=== PATIENT | female | born 1935 | race Caucasian/White ===

== ENCOUNTER 2021-01-17 10:41 | Outpatient (CLI) | payer MEDICARE, SELFPAY ==
--- NOTE | ~2021-01-17 | DEXA_ITS ---
Bone Density Report Name: Viviane Nova Age: 85 Sex: Female Ethnicity: White Date of : 1935 Indication: postmenopausal; screening for osteoporosis; height loss; Referring Provider: Julian, [place] Study: Bone densitometry was performed. Exam Date: January 17, 2021 Accession number: [id number] Bone Density: Region BMD T-score Z-score Classification AP Spine(L2, L3, L4) 1.218 1.3 4.2 Normal Femoral Neck (Left) 0.781 -0.6 1.9 Normal Total Hip (Left) 0.811 -1.1 1.2 Osteopenia Femoral Neck (Right) 0.714 -1.2 1.2 Osteopenia Total Hip (Right) 0.755 -1.5 0.7 Osteopenia Femoral Neck Mean 0.748 -0.9 1.6 Normal Total Hip Mean 0.783 -1.3 1.0 Osteopenia World Health Organization criteria for BMD impression classify patients as: Normal (T-score at or above -1.0), Osteopenia (T-score between -1.0 and -2.5), or Osteoporosis (T-score at or below -2.5). 10-year Fracture Risk(1): Major Osteoporotic Fracture 12% Hip Fracture 2.9% Reported Risk Factors: [place] (), Neck BMD=0.714, BMI=27.6 (1) FRAX(R) Version 3.08. Fracture probability calculated for an untreated patient. Fracture probability may be lower if the patient has received treatment. Clinical Information Provided by Patient: Has used the following medications: Actonel (i.e. risedronate), Evista (i.e. raloxifene), Vitamin D Patient maximum height was 67 Menopause Age: 52 No regular weight bearing exercise Onset of menses at age 15 Number of children 3 Impression: The patient has low bone mass, based on the Right Total Hip T-score. Discussion: BONE DENSITY IS LOW AT ONE OR MORE SKELETAL SITES. This patient's lowest T-score is low at one or more skeletal sites. It meets the World Health Organization's (WHO) criteria for ?low bone mass? (T-score between -1.0 and -2.5). The patient's 10-year risk of fracture as calculated by FRAX is less than the threshold where pharmacological therapy is recommended by the National Osteoporosis Foundation (NOF). However, all treatment decisions require clinical judgment and consideration of individual patient factors, including patient preferences, comorbidities, previous drug use, risk factors not captured in the FRAX model (e.g., frailty, falls, vitamin D deficiency, increased bone turnover, interval significant decline in bone density) and possible under or overestimation of fracture risk by FRAX. The patient should follow a healthful lifestyle (good nutrition with adequate calcium and vitamin D, and appropriate weight-bearing exercise). Follow-Up: Consider repeating this study in 2 to 3 years to reassess this patient's status, or sooner if there is some new clinical indication. Reported by: Dr. Darren De La Rosa on 01/17/2021 11:14:00 AM.
== END 2021-01-17 10:42 | disposition home or self-care (01) ==
LOC: CHSIMG 10:47
PROVIDERS: PCP Nurse Practitioner; Visit Provider Nurse Practitioner
DX: M85.80 Other specified disorders of bone density and structure, unspecified site (principal); Z78.0 Asymptomatic menopausal state
CPT/HCPCS: 77080

== ENCOUNTER 2025-02-15 08:33 | Outpatient (CLI) | payer MEDICARE, SELFPAY ==
--- OUTSIDE RECORDS SUMMARY | 2025-02-15 08:53 | XMS_ITS | Clinical Summary ---
Author Organization [facility] Address [facility] [place] [address] Care Team Providers Care Logistician Name Role Phone Aleja Tang MD Primary Care Provider [phone] Allergies Active Allergy Reactions Criticality Noted Date Comments Amlodipine Hives 08/01/2020 Sulfamethoxazole-Trimethoprim Unknown 2019 Medications simvastatin 20 MG tablet Take 20 mg by mouth nightly at bedtime. Active atenolol 25 MG tablet Take 25 mg by mouth daily. Active valsartan 320 MG tablet Take 320 mg by mouth daily. Active levothyroxine 50 MCG tablet Take 50 mcg by mouth every morning. Active Encounters Date Type Department Care Team Description 01/20/2025 10:50 AM TENT WORKER - 01/20/2025 11:59 PM [facility] Hospital Encounter [facility] [address] [place] [address] Kristyn Leone MD Discharge Disposition: Home or Self Care (Routine Discharge) 01/20/2025 Orders Only [facility] [place] [address] Kristyn Leone MD 01/20/2025 Travel 11/26/2024 1:27 PM TENT WORKER - 11/26/2024 11:59 PM [facility] Hospital Encounter [facility] [address] [place] [address] Aleja Tang MD Discharge Disposition: Home or Self Care (Routine Discharge) 11/26/2024 Travel from Last 3 Months Immunizations Name Administration Dates Next Due Influenza Adult (Generic) 09/10/2021 Pneumococcal (Pneumovax 23) 09/08/2009 Family History Medical History Relation Comments Heart Disease Father Heart Disease Mother Breast Cancer Sister Relation Status Comments Father Mother Sister Social History Tobacco Use Types Packs/Day Years Used Date Smoking Tobacco: Never Smokeless Tobacco: Never Alcohol Use Standard Drinks/Week Comments Yes 0 (1 standard drink = 0.6 oz pur e alcohol) rare occasion Comments No Sex and Gender Information Value Date Recorded Sex Assigned at Female 01/20/2025 10:47 AM TENT WORKER Legal Sex Female 11:01 PM CDT Gender Identity Not on file Sexual Orientation Not on file Last Filed Vital Signs Vital Sign Reading Time Taken Comments Blood Pressure 137/56 08/08/2020 8:50 AM CDT Pulse 58 08/08/2020 8:50 AM CDT Temperature 35.9 C (96.7 F) 08/08/2020 8:50 AM CDT Respiratory Rate 18 08/08/2020 8:50 AM CDT Oxygen Saturation 97% 08/08/2020 8:50 AM CDT Inhaled Oxygen Concentration - - Weight 79.8 kg (176 lb) 08/01/2020 2:43 PM CDT Height 167.6 cm (5' 6 ) 08/01/2020 2:43 PM CDT Body Mass Index 28.41 08/01/2020 2:43 PM CDT Plan of Treatment Upcoming Encounters Date Type Department Care Team (Late st Contact Info) Description 02/28/2025 1:30 PM CDT Appointment [facility] [address] [facility] [place] [place] [address] Aleja Tang MD [address] [place] [address] Health Maintenance Due Date Last Done Comments DTaP, Tdap and Td Vaccines ( 1 - Tdap) 1956 Zoster Vaccines (1 of 2) 1987 Annual Medicare Wellness Visit 2002 Pneumococcal Vaccine: 65+ Years (2 of 2 - PCV) 09/08/2010 09/08/2009 RSV Immunization or 60+ Years (1 - 1-dose 75+ series) 2012 COVID-19 Vaccine ( - 2023-2 5 season) 2024 09/10/2021, 01/12/2021, 12/15/2020 Meningococcal B Vaccine Aged Out No l onger eligible based on patient's age to complete this topic Meningococcal Vaccine Aged Out No ramon ketan eligible based on patient's age to complete this topic RSV Immunizations Under 20 Months Aged Out No longer eligible b ased on patient's age to complete this topic Procedures Procedure Name Priority Date/Time Associated Diagnosis Comments ALBUMIN URINE RANDOM W/CREATININE Routine 01/20/2025 11:25 AM TENT WORKER Chronic kidney disease, stage 3 unspecified (CMS/HCC) CBC W/DIFF AUTOMATED Routine 01/20/2025 11:22 AM TENT WORKER Chronic kidney disease, stage 3 unspecified (CMS/HCC) RENAL FUNCTION PANEL Routine 01/20/2025 11:22 AM TENT WORKER Chronic kidney disease, stage 3 unspecified (CMS/HCC) MRI LUMB SPINE WO CON Routine 11/26/2024 2:25 PM TENT WORKER Facet joint disease of lumbosacral region from Last 3 Months Results * ALBUMIN CREATININE URINE RANDOM (01/20/2025 11:25 AM TENT WORKER) ALBUMIN (U) 1.2 MG/DL 01/20/2025 11:52 AM TENT WORKER [facility] Comment:REFERENCE RANGE NOT ESTABLISHED CREATININE RANDOM (U) 88.7 MG/DL 01/20/2025 11:52 AM TENT WORKER [facility] Comment:REFERENCE RANGE NOT ESTABLISHED ALBUMIN/CREAT RATIO 13.5 <30 MG/G 01/20/2025 11:52 AM TENT WORKER [facility] Comment: NORMAL TO MILDLY INCREASED ALBUMINURIA: <30 MG/G MODERATELY INCREASED ALBUMINURIA: 30 TO 300 MG/G SEVERELY INCREASED ALBUMINURIA: >300 MG/G PER KDIGO URINE SPECIMEN / Unknown 01/20/2025 11:25 AM TENT WORKER us Kristyn Leone MD URINE ORDERABLES Final Res ult [facility] [address] [place] [address], * (ABNORMAL) RENAL FUNCTION PANEL (01/20/2025 11:22 AM TENT WORKER) SODIUM S/P/B 138 136 - 145 MMOL/L 01/20/2025 11:46 AM [facility] POTASSIUM S/P/B 4.3 3.5 - 5.1 MMOL/L 01/20/2025 11:46 AM [facility] CHLORIDE S/P/B 103 98 - 107 MMOL/L 01/20/2025 11:46 AM [facility] CO2 29.0 21.0 - 32.0 MMOL/L 01/20/2025 11:46 AM [facility] GLUCOSE 93 70 - 99 MG/DL 01/20/2025 11:46 AM [facility] Comment: FASTING GLUCOSE 100 TO 125 MG/DL IS CONSISTENT WITH IMPAIRED FASTING GLUCOSE. FASTING GLUCOSE >125 MG/DL IS CONSISTENT WITH DIABETES. RANDOM GLUCOSE >200 MG/DL WITH HYPERGLYCEMIC SYMPTOMS IS CONSISTENT WITH DIABETES. PER ADA GUIDELINES BUN 31(H) 6 - 24 MG/DL 01/20/2025 11:46 AM [facility] CREATININE S/P/B 1.26(H) 0.55 - 1.02 MG/DL 01/20/2025 11:46 AM [facility] CALCIUM S/P/B 8.9 8.4 - 10.5 MG/DL 01/20/2025 11:46 AM [facility] ALBUMIN S/P/B 3.3(L) 3.4 - 5.0 G/DL 01/20/2025 11:46 AM [facility] PHOSPHORUS 3.6 2.6 - 4.7 MG/DL 01/20/2025 11:46 AM [facility] ANION GAP 6.0 5.0 - 15.0 MMOL/L 01/20/2025 11:46 AM [facility] OSMOLALITY (CALC) 292 MOSM/KG 025 11:46 AM [facility] Comment:REFERENCE RANGE NOT ESTABLISHED GFR ESTIMATE 41(L) >89 ML/MIN/1. 73 M2 01/20/2025 11:46 AM TENT WORKER [facility] GFR NOTES GFR REFERENCE S: 01/20/2025 11:46 AM TENT WORKER [facility] Comment: THE ESTIMATED GFR IS CALCULATED USING THE 2020 CKD-EPI EQUATION. THE FOLLOWING CATEGORIES FOR GRADING RENAL FUNCTION ARE RECOMMENDED BY THE INTERNATIONAL SOCIETY OF NEPHROLOGY (KDIGO 2012 CLINICAL PRACTICE GUIDELINE). G1,NORMAL OR HIGH: >89 ml/min/1.73 m2 G2,MILDLY DECREASED: 60-89 ml/min/1.73 m2 G3A,MILDLY TO MODERATELY DECREASED: 45-59 ml/min/1.73 m2 G3B,MODERATELY TO SEVERELY DECREASED: 30-44 ml/min/1.73 m2 G4,SEVERELY DECREASED: 15-29 ml/min/1.73 m2 G5,KIDNEY FAILURE: <15 ml/min/1.73 m2 01/20/2025 11:2 2 AM TENT WORKER Kristyn Leone MD LABORATORY Final Resu lt [facility] [address] [place] [address], * (ABNORMAL) CBC W/DIFF AUTOMATED (01/20/2025 11:22 AM TENT WORKER) WBC 9.01 4.00 - 10.80 x10'3/uL 01/20/2025 11:30 AM TENT WORKER [facility] RBC 4.33 4.10 - 5.40 x10'6/uL 01/20/2025 11:30 AM [facility] HGB 13.2 12.0 - 16.0 G/DL 01/20/2025 11:30 AM [facility] HCT 39.5 36.0 - 47.0 % 01/20/2025 11:30 AM TENT WORKER [facility] MCV 91.2 78.0 - 100.0 FL 01/20/2025 11:30 AM [facility] MCH 30.5 27.0 - 31.0 PG 01/20/2025 11:30 AM [facility] MCHC 33.4 33.0 - 36.0 G/DL 01/20/2025 11:30 AM [facility] RDW 12.4 11.5 - 14.5 % 01/20/2025 11:30 AM [facility] PLT 303 150 - 350 x10'3/uL 01/20/2025 11:30 AM [facility] MPV 9.8 7.4 - 10.4 FL 01/20/2025 11:30 AM [facility] CBC COMMENT NORMAL REFERENCE RANGE NOT ESTABLISHED FOR THE PROPORTIONAL LEUKOCYTE DIFFERENTIAL. 01/20/2025 11:30 AM [facility] NEUTROPHILS % 63.2 % 01/20/2025 11:30 AM [facility] LYMPHOCYTES % 21.0 % 01/20/2025 11:30 AM [facility] MONOCYTES % 10.0 % 01/20/2025 11:30 AM [facility] EOSINOPHILS % 4.7 % 01/20/2025 11:30 AM [facility] BASOPHILS % 0.8 % 01/20/2025 11:30 AM [facility] IMMATURE GRANS % 0.3 % 01/21/20 11:30 AM [facility] NRBC % 0.0 % 01/20/2025 11:30 AM [facility] ABS. NEUTROPHILS 5.70 1.60 - 8.30 x10'3/uL 01/20/2025 11:30 AM [facility] ABS. LYMPHOCYTES 1.89 0.80 - 4.70 x10'3/uL 01/20/2025 11:30 AM [facility] ABS. MONOCYTES 0.90 0.00 - 1.50 x10'3/uL 01/20/2025 11:30 AM [facility] ABS. EOSINOPHILS 0.42(H) 0.00 - 0.40 x10'3/uL 01/20/2025 11:30 AM [facility] ABS. BASOPHILS 0.07 0.00 - 0.20 x10'3/uL 01/20/2025 11:30 AM TENT WORKER [facility] ABS. IMMATURE GRANULOCYTES 0.03 0.00 - 0.03 x10'3/uL 01/20/2025 11:30 AM TENT WORKER [facility] ABS. NUCLEATED RBC'S 0.00 0.00 - 0.01 x10'3/uL 01/20/2025 11:30 AM TENT WORKER [facility] 01/20/2025 11:2 2 AM TENT WORKER Krsityn Leone MD LABORATORY Final Resu lt [facility] [address] [employer] [place] [address], [place] [phone] * MRI LUMB SPINE WO CON (11/26/2024 2:25 PM TENT WORKER) Anatomical Region Laterality Modality Spine Magnetic Resonan ce 11/26/2024 3:25 PM TENT WORKER Impressions 11/26/2024 3:35 PM TENT WORKER IMPRESSION: 1. At L5/S1 level there is disc space narrowing with 5 mm anterolisthesis and hypertrophic facet arthropathy causing moderate central canal stenosis and severe bilateral foraminal stenosis, increased compared to the prior MRI of 2018. 2. Severe neuroforaminal stenosis on the right at L2/L3 due to disc space narrowing, 3 mm retrolisthesis and a right foraminal disc/osteophyte complex, not significantly changed. 3. Mild central canal stenosis and mild bilateral foraminal stenosis at L4/L5, unchanged. 4. 22 degrees of lumbar levoscoliosis. No acute osseous abnormality. Referred By: ALEJA TANG Interpreted By: Shaka Jhaveri MD, 11/26/2024 3:25 PM Narrative 11/26/2024 3:35 PM TENT WORKER [facility] [address] [facility] [place] [address] EXAMINATION:MRI lumbar spine without contrast 11/26/24 INDICATION:Left leg pain, facet joint disease TECHNIQUE: Multiplanar multisequence or imaging of the lumbar spine was performed without intravenous contrast. COMPARISON: Lumbar spine MRI 05/01/18 FINDINGS: Last fully formed disc space is presumed represent L5/S1. There is 22 degrees of lumbar levoscoliosis with preservation of vertebral body heights and disc spaces. Bone marrow signal is within normal limits with no acute fracture or dislocation. The conus terminates at the L1/L2 level and is unremarkable contour and signal. No paraspinal mass or fluid collection the visualized abdominal aorta is unremarkable in contour. The upper sacroiliac joint spaces are unremarkable. Mild prominence of the renal pelvis C6 and proximal ureters is unchanged. T10/T11: Negative T1/T12: Negative T12/L1: Negative L1/L2: Disc space narrowing L2/L3: Disc space narrowing with 3 mm of retrolisthesis and right foraminal disc/osteophyte complex with facet arthropathy causing severe right neural foraminal stenosis, unchanged L3/L4: Mild disc space narrowing disc bulging L4/L5: Disc space narrowing with 3 mm anterolisthesis, facet arthropathy and thickening of ligamentum flavum causing mild to central canal stenosis and mild bilateral foraminal stenosis, unchanged. The thecal sac measures 7 mm L5/S1: Disc space narrowing with 5 mm anterolisthesis and hypertrophic facet arthropathy causing moderate central canal stenosis and severe bilateral foraminal stenosis, increased compared to the prior MRI. The thecal sac measures 6 mm. Procedure Note Shaka Jhaveri MD - 11/26/2024 [place] [id number] [place] [address] EXAMINATION:MRI lumbar spine without contrast 11/26/24 INDICATION:Left leg pain, facet joint disease TECHNIQUE: Multiplanar multisequence or imaging of the lumbar spine wasperformed without intravenous contrast. COMPARISON: Lumbar spine MRI 05/01/18 FINDINGS: Last fully formed disc space is presumed represent L5/S1. Thereis 22 degrees of lumbar levoscoliosis with preservation of vertebral bodyheights and disc spaces. Bone marrow signal is within normal limits withno acute fracture or dislocation. The conus terminates at the L1/L2 level and is unremarkable contour andsignal. No paraspinal mass or fluid collection the visualized abdominalaorta is unremarkable in contour. The upper sacroiliac joint spaces areunremarkable. Mild prominence of the renal pelvis C6 and proximal uretersis unchanged. T10/T11: Negative T1/T12: Negative T12/L1: Negative L1/L2: Disc space narrowing L2/L3: Disc space narrowing with 3 mm of retrolisthesis and rightforaminal disc/osteophyte complex with facet arthropathy causing severeright neural foraminal stenosis, unchanged L3/L4: Mild disc space narrowing disc bulging L4/L5: Disc space narrowing with 3 mm anterolisthesis, facet arthropathyand thickening of ligamentum flavum causing mild to central canal stenosisand mild bilateral foraminal stenosis, unchanged. The thecal sac measures7 mm L5/S1: Disc space narrowing with 5 mm anterolisthesis and hypertrophicfacet arthropathy causing moderate central canal stenosis and severebilateral foraminal stenosis, increased compared to the prior MRI. Thethecal sac measures 6 mm. IMPRESSION: 1. At L5/S1 level there is disc space narrowing with 5 mm anterolisthesisand hypertrophic facet arthropathy causing moderate central canal stenosisand severe bilateral foraminal stenosis, increased compared to the priorMRI of 2018. 2. Severe neuroforaminal stenosis on the right at L2/L3 due to disc spacenarrowing, 3 mm retrolisthesis and a right foraminal disc/osteophytecomplex, not significantly changed. 3. Mild central canal stenosis and mild bilateral foraminal stenosis atL4/L5, unchanged. 4. 22 degrees of lumbar levoscoliosis. No acute osseous abnormality. Referred By: ALEJA TANG Interpreted By: Shaka Jhaveri MD, 11/26/2024 3:25 PM Aleja Tang MD MRI Final Result from Last 3 Months Insurance [employer] Care Teams Logistician Relationship Specialty Start Date End Date Aleja Tang MD [facility] [employer] [place] [phone] PCP - General FAMILY PRACTICE 01/20/25
--- OUTSIDE RECORDS SUMMARY | 2025-02-15 08:54 | XMS_ITS | Data Portability ---
Author Organization [facility], [address] [facility] [place]rology ([place]) Address [address] [place] [address] Care Team Providers Care Players Assistant Name Role Phone KRISTEN JUAREZ Primary Care Provider KRISTYN PHAM Pastoral Assistant [phone] Assessment Encounter Date Assessment Date Assessment LastModified by Organization Details LastModified Time 06/10/2024 06/10/2024 Ms. Nova is a pleasant 89-year-old female with a past medical history significant for hypertension, hyperlipidemia, chronic kidney disease stage III who is here for follow-up on her KALEB with CKD. Baseline serum creatinine ranges between 1.0-1.1 -Chronic kidney disease stage III with a baseline serum creatinine ranging between 1.0-1.1 Patient's most recent serum creatinine level is slightly elevated at 1.3 with a GFR of 39 and A urine microalbumin/creat inine ratio is very minimal Given slight elevation in serum creatinine level will be rechecked prior to her next appointment Patient is advised on adequate hydration She denies using any NSAIDs No recent symptoms of UTI or antibiotic usage -Hypertension Blood pressure in the office today is 136/70 and a heart rate of 62 Patient is currently on valsartan/hydrochl oric thiazide along with atenolol for blood pressure control. -Nonnephrotic range proteinuria very minimal monitor at this time she is currently on valsartan/hydrochl orothiazide. KDIGO recommendations to prevent CKD progression -Advised to undertake moderate-intensity physical activity for a cumulative duration of at least 150 minutes per week, or to a level compatible with their cardiovascular and physical tolerance -Patients should consume a balanced, healthy diet that is high in vegetables, , plant-based proteins, unsaturated fats, and lower in processed meats, refined carbohydrates, and sweetened beverages. -Sodium (<2 g/day) and protein intake (0.8 g/kg/day) in accordance with recommendations for the general population. - Suggest NOT to prescribe bisphosphonate treatment in people with GFR <30 ml/min/1.73 m2 (GFR categories G4-G5) without a strong clinical rationale. -Individualize Hba1c target goal of 6.5 to 8 % based on underlying comorbidities -Cessation of tobacco -Avoid Nephrotoxic agents -such as NSAIDS -renal dosage of all medications to the appropriate GFR [email or web address] Not available 06/10/2024 11:58:17 09/09/2024 09/09/2024 Ms. Nova is a pleasant 89-year-old female with a past medical history significant for hypertension, hyperlipidemia, chronic kidney disease stage III who is here for follow-up on her KALEB with CKD. Baseline serum creatinine ranges between 1.0-1.1 -Chronic kidney disease stage III with a baseline serum creatinine ranging between 1.0-1.1 Patient's most recent serum creatinine level is slightly elevated at 1.22 with a GFR of 43 urine microalbumin/creat inine ratio is very minimal at 23.4. Patient continues to hydrate well and to avoid NSAIDs. Fluid and electrolyte balance are adequate. Continue to monitor renal function panel at regular intervals. N onnephrotic range proteinuria Patient's most recent microalbumin/creat inine ratio was noted to be minimal at 23.4. KDIGO recommendations to prevent CKD progression -Advised to undertake moderate-intensity physical activity for a cumulative duration of at least 150 minutes per week, or to a level compatible with their cardiovascular and physical tolerance -Patients should consume a balanced, healthy diet that is high in vegetables, , plant-based proteins, unsaturated fats, and lower in processed meats, refined carbohydrates, and sweetened beverages. -Sodium (<2 g/day) and protein intake (0.8 g/kg/day) in accordance with recommendations for the general population. - Suggest NOT to prescribe bisphosphonate treatment in people with GFR <30 ml/min/1.73 m2 (GFR categories G4-G5) without a strong clinical rationale. -Individualize Hba1c target goal of 6.5 to 8 % based on underlying comorbidities -Cessation of tobacco -Avoid Nephrotoxic agents -such as NSAIDS -renal dosage of all medications to the appropriate GFR C KD/MBD Calcium and phosphorus are within normal range. Anemia of chronic disease Patient's hemoglobin is stable with no indication for SUELLEN. Hypertension Patient's blood pressure is under good control. Patient will continue with her current med regimen and continue to follow a low-sodium diet. The patient had the opportunity to ask and have questions answered. The patient voiced an understanding of the diagnosis and of the care plan and intent to comply with it. [email or web address] Not available 09/09/2024 17:40:08 01/25/2025 01/25/2025 In summary, this 89 year old female with PMH of CKD, hypertension, hyperlipidemia presents with left leg pain. The patient reports that the pain localizes specifically to the left leg and worsens when transitioning from lying down to standing, especially after sleep, but improves throughout the day. There are no focal deficits on neurologic exam. MRI of the lumbar spine ([facility]; 11/26/24) reveals evidence of thoracolumbar scoliosis. There are multilevel degenerative changes, most significant at L5-S1 with 5mm of anterolisthesis resulting in moderate central canal stenosis and severe bilateral recess stenosis. I feel that there is no acute indication for neurosurgical intervention in this patient. I recommend conservative management. We will refer her to our Interventional Spine [facility] colleagues to consider epidural steroid injection. Thank you for allowing us to participate in this patient's care. [email or web address] Not available 01/25/2025 16:30:49 01/27/2025 01/27/2025 Ms. Nova is a pleasant 89-year-old female with a past medical history significant for hypertension, hyperlipidemia, chronic kidney disease stage III who is here for follow-up on her KALEB with CKD. Baseline serum creatinine ranges between 1.0-1.1 -Chronic kidney disease stage III with a baseline serum creatinine ranging between 1.0-1.1 Patient's most recent serum creatinine level is slightly elevated at 1.2 with a GFR of 41 urine microalbumin/creat inine ratio is very minimal at 23.4. Patient continues to hydrate well and to avoid NSAIDs. Fluid and electrolyte balance are adequate. Continue to monitor renal function panel at regular intervals. N onnephrotic range proteinuria Patient's most recent microalbumin/creat inine ratio was noted to be minimal KDIGO recommendations to prevent CKD progression -Advised to undertake moderate-intensity physical activity for a cumulative duration of at least 150 minutes per week, or to a level compatible with their cardiovascular and physical tolerance -Patients should consume a balanced, healthy diet that is high in vegetables, , plant-based proteins, unsaturated fats, and lower in processed meats, refined carbohydrates, and sweetened beverages. -Sodium (<2 g/day) and protein intake (0.8 g/kg/day) in accordance with recommendations for the general population. - Suggest NOT to prescribe bisphosphonate treatment in people with GFR <30 ml/min/1.73 m2 (GFR categories G4-G5) without a strong clinical rationale. -Individualize Hba1c target goal of 6.5 to 8 % based on underlying comorbidities -Cessation of tobacco -Avoid Nephrotoxic agents -such as NSAIDS -renal dosage of all medications to the appropriate GFR C KD/MBD Calcium and phosphorus are within normal range. Anemia of chronic disease Patient's hemoglobin is stable with no indication for SUELLEN. Hypertension Patient's blood pressure is under good control. Patient will continue with her current med regimen and continue to follow a low-sodium diet. The patient had the opportunity to ask and have questions answered. The patient voiced an understanding of the diagnosis and of the care plan and intent to comply with it. CBC, renal function panel, urine microalbumin/creat inine ratio prior to next appointment follow up [email or web address] Not available 01/28/2025 16:00:22 Plan of Treatment Reminders Order Date Submit Date Provider Last Modified By Organization Details Last Modified Time Details Appointments New Patient Visit 30.NEW 2024 11:30A M Dr. Jensen Davis Not available Not available Not available Establi shed Patient 15.EST 2024 10:15A M Fallon Qureshi Not available Not available Not available Lab None recorde d. Referral interve ntional pain medicin e special ist referra l 2024 025 paddy Davis, [address] [place] [address], [id number], 02/03/2025 16:04:39 Procedures None recorde d. Surgeries None recorde d. Imaging None recorde d. Medication Orders None recorde d. Patient TargetsNo targets recorded. Patient InstructionsNo instructions recorded. Reason for Referral Interventional Pain Medicine Specialist Referral for Degenerative lumbar spinal stenosis Referring Physician: Kayla Marino, Neurosurgery, Encounter Date: 01/25/2025 Results Created Date Observation Date Name Description Value Unit Range Abnormal Flag Note LastModifiedBy Organization Detail LastModifiedTime Result Notes None recorded. Problems Name Problem SNOMED Code Status Onset Date Resolution Date Notes Provider Name and Address Organization Details Recorded Time Degenerative lumbar spinal stenosis 979728623 Active 2024 Nedra Pavon, BAKERY DECORATOR, BAIL AGENT [address], [address] , [facility] 5 13:15:44 Low back pain 486406593 Active 2024 Elli Mcmanus [facility] 5 08:58:47 Chronic kidney disease stage 3 277366065 Active 2023 Saskia Vance [facility] 4 10:39:20 Problem Notes None recorded. Medical Equipment None Reported. Allergies No known drug allergies Medications Name Sig Start Date Stop Date Status Note LastModified by Organization Details LastModified Time ropinirole 1 mg tablet 1 (ONE) TABLET IN THE AFTERNOON AND AT BEDTIME active Not Available Not Available No t Available valsartan 160 mg-hydrochl orothiazide 12.5 mg tablet TAKE 1 TABLET BY MOUTH DAILY active Not Available Not Available No t Available levothyroxi ne 75 mcg tablet TAKE 1 TABLET BY MOUTH EVERY DAY active Not Available Not Available No t Available simvastatin 20 mg tablet TAKE 1 TABLET BY MOUTH EVERY EVENING 01/27 completed Not Available Not Available Not Available ropinirole 0.5 mg tablet TAKE 1 TABLET EVERY DAY AT 4:OO PM active Not Available Not Available No t Available clotrimazol e-betametha sone 1 %-0.05 % topical cream APPLY TO AFFECTED AREA TWICE A DAY 06/10 completed Not Available Not Available Not Available atenolol 50 mg tablet TAKE 1 TABLET BY MOUTH EVERY DAY active Not Available Not Available No t Available pregabalin 75 mg capsule TAKE 1 CAPSULE BY MOUTH TWICE A DAY 09/09 completed Not Available Not Available Not Available Vitals Date Recorded Body height Body mass index (BMI) Body weight Heart rate Oxygen saturation Oxygen saturation in Arterial blood by Pulse oximetry Systolic blood pressure Diastolic blood pressure Provider Name and Address Organization Details Last Updated DateTime 4 165.1 cm 27.2 kg/m2 06458.9 9 g 62 /min 98 % 98 % 136 mm[Hg] 70 mm[Hg] Corina Simmons [facility] 4 11:36:41 Date Recorded Body height Body mass index (BMI) Body weight Heart rate Systolic blood pressure Diastolic blood pressure Provider Name and Address Organization Details Last Updated DateTime 4 165.1 cm 27.3 kg/m2 43545.1 5 g 70 /min 154 mm[Hg] 82 mm[Hg] Gerardo Maged [facility] 4 10:32:29 Date Recorded Systolic blood pressure Diastolic blood pressure Provider Name and Address Organization Details Last Updated DateTime 09/09/2024 126 mm[Hg] 66 mm[Hg] Fallon Qureshi PA-C [address] [place] [address], [phone], [facility] 09/09/2024 10:47:03 Date Recorded Body height Body mass index (BMI) Body weight Heart rate Oxygen saturation Oxygen saturation in Arterial blood by Pulse oximetry Pain severity - 0-10 verbal numeric rating [Score] - Reported Systolic blood pressure Diastolic blood pressure Provider Name and Address Organization Details Last Updated DateTime 5 165.1 cm 27.6 kg/m2 53279.6 1 g 80 /min 95 % 95 % 10 124 mm[Hg] 82 mm[Hg] Michelle Eastman [facility] 5 12:05:03 Date Recorded Body height Body mass index (BMI) Body weight Heart rate Oxygen saturation Oxygen saturation in Arterial blood by Pulse oximetry Systolic blood pressure Diastolic blood pressure Provider Name and Address Organization Details Last Updated DateTime 5 165.1 cm 27.5 kg/m2 44955.7 4 g 66 /min 96 % 96 % 120 mm[Hg] 78 mm[Hg] Saskia Vance [facility] 5 10:55:34 Social History None recorded. Functional Status None recorded. Mental Status None recorded. Family History Nothing Reported. Medical History No medical history recorded. Gynecological HistoryNo gynecological history recorded. Obstetrics History GPAL:G 0 P 0 0 0 0 Past Encounters Encounter ID Performer Location Encounter Start Date Encounter Closed Date Diagnosis/Indication Diagnosis SNOMED-CT Code Diagnosis ICD10 Code Diagnosis Note [id number] Kristyn Pham MD [facility] ([place]) [address] [facility] [place] [address] 06/10/2024 11:18:03 06/10/2024 11:58:12 Chronic kidney disease stage 3 052582788 N18.30 [id number] Fallon Qureshi PA-C [facility] ([place]) [address] [facility] [place] [place] [address] 09/09/2024 10:05:45 09/09/2024 10:49:44 Chronic kidney disease stage 3 037012576 N18.30 [id number] Kristyn Pham MD [facility] ([place]) [address] [facility] [place] [address] 01/27/2025 10:19:53 01/27/2025 11:09:49 Chronic kidney disease stage 3 378422556 N18.30 follow up in 4 mons. cbc,rfp microalbum in [id number] Kayla chavez MD [address] [facility] ([place]) [address] [place] [address] [address] 01/25/2025 11:36:21 01/25/2025 13:32:50 Degenerative lumbar spinal stenosis 535744519 M48.061 Health Concerns Section Related Observation LastModified by Organization Detai ls LastModified Time None Recorded Concern Status LastModified by Organization Details LastModified Time None Recorded Advance Directives Directive None Recorded Payers Encounter Date Sequence Insurance Name Policy Number Policy Rosado Covered Member ID Rosado Member ID Guarantor Name 06/10/2024 1 [place] Viviane Nova [id number] Viviane Nova 06/10/2024 2 [employer] (MEDICARE SUPPLEMENT) Viviane Nova [id number] Viviane Nova 09/09/2024 1 [place] Viviane Nova [id number] Viviane Nova 09/09/2024 2 [employer] (MEDICARE SUPPLEMENT) Viviane Nova [id number] Viviane Nova 01/25/2025 1 [place] Viviane Nova [id number] Viviane Nova 01/25/2025 2 [employer] (MEDICARE SUPPLEMENT) Viviane Nova [id number] Viviane Nova 01/27/2025 1 [place] Viviane Nova [id number] Viviane Nova 01/27/2025 2 [employer] (MEDICARE SUPPLEMENT) Viviane Nova [id number] Viviane Nova Notes Date Note Type Note Provider Name and Address Organization Details Recorded Time 06/10/2024 text/html Ms. Nova is a pleasant 89-year-old female with a past medical history significant for hypertension, hyperlipidemia, chronic kidney disease stage III who is here for follow-up on her KALEB with CKD.Baseline serum creatinine ranges between 1.0-1.1 She denies having any nausea, vomiting or diarrhea Denies having any light headedness or dizziness. Denies having any chest pain, shortness breath or palpitation Denies having any worsening lower extremity edemaNo worsening lower extremity edema Kristyn Pham MD [facility] [address], [address], [facility] 06/10/2024 11:59:49 09/09/2024 text/html Ms. Nova is a pleasant 89-year-old female with a past medical history significant for hypertension, hyperlipidemia, chronic kidney disease stage III who is here for follow-up on her KALEB with CKD with Baseline serum creatinine ranges between 1.0-1.1. Patient denies any fever, chills, or sweats. She denies any chest pain or shortness of breath. She continues to hydrate well and to avoid NSAIDs. Patient's biggest complaint is that she has pain on the left side of her left leg and does have a history of RLS. She is currently doing therapy exercises for the left leg and she thinks is improving. Fallon Qureshi PA-C [address] [place] [address], [phone], [place] [facility] 09/09/2024 17:40:23 01/25/2025 text/html HPI:Ms. Nova is an 89 year old female who is a patient of Dr. Juarez is referred by Dr. Valadez for lumbar stenosis. Initial consult: 01/25/25 patient presents today for lumbar stenosis/leg pain. The patient states that she has had pain in the side of her left leg for about 6 months. She states that the pain is worst after laying down at night in the morning when she first wakes up. She denies any weakness or falls. The patient rates the pain a 10/10. The patient denies any injuries to her back. The patient states that the pain is on the side and back of her leg. Patient denies any bowel issues but states she has problems with bladder incontinence. She states nothing works to get rid of the pain but laying down and walking after makes the pain worse. Patient can only take tylenol. Patient denies any physical therapy, injections, chiropractics, or EMG testing. She has no history of diabetes. She is on a medication for hypertension. She has no history of surgery. She has restless leg syndrome. Past Medical/Surgical History:CKD, hypertension, hyperlipidemia Conservative Measures:Tylenol (it is all she can take) P ertinent Imaging:MRI lumbar spine without contrast at [facility] on 11/26/24.IMPRESSION:1 . At L5/S1 level there is disc space narrowing with 5 mm anterolisthesis and hypertrophic facet arthropathy causing moderate central canal stenosis and severe bilateral foraminal stenosis, increased compared to the prior MRI of 2018.2. Severe neuroforaminal stenosis on the right at L2/L3 due to disc space narrowing, 3 mm retrolisthesis and a right foraminal disc/osteophyte complex, not significantly changed.3. Mild central canal stenosis and mild bilateral foraminal stenosis at L4/L5, unchanged.4. 22 degrees of lumbar levoscoliosis. No acute osseous abnormality. Kayla Lawson i, MD [address] [place] [address], [phone], [facility] 01/29/2025 13:07:03 01/27/2025 text/html Ms. Nova is a pleasant 89-year-old female with a past medical history significant for hypertension, hyperlipidemia, chronic kidney disease stage III who is here for follow-up on her KALEB with CKD.Baseline serum creatinine ranges between 1.0-1.1 Kristyn Pham MD [address] [place] [address], [phone], [facility] 01/28/2025 16:01:58 OBGyn Episode No OBEpisode recorded.
[2025-02-15 09:06] LABS: Basophils Absolute Auto 0.07 K/mm3 (0.00-0.10); Eosinophils Percent Auto 6.9 % (1.0-6.0); Hematocrit 40.2 % (35.0-42.0); Hemoglobin 13.5 g/dL (11.7-13.8); Immature Granulocyte Absolute 0.02 K/mm3 (0.00-0.00); Immature Granulocyte Percent A 0.3 % (0.0-0.0); Lymphocytes Absolute Auto 1.32 K/mm3 (1.10-4.50); Lymphocytes Percent Auto 18.2 % (18.0-42.0); Mean Corpuscular HGB Conc 33.6 g/dL (32-36); Mean Corpuscular Hemoglobin 30.5 pg (27.0-31.0); Mean Corpuscular Volume 90.7 fL (78.0-102.0); Mean Platelet Volume 10.1 fl (9.2-11.8); Monocytes Absolute Auto 0.54 K/mm3 (0.10-0.90); Monocytes Percent Auto 7.4 % (2.0-11.0); Neutrophils Absolute Auto 4.82 K/mm3 (1.70-7.20); Neutrophils Percent Auto 66.2 % (50.0-70.0); Platelet Count Result 282 K/mm3 (150-420); Red Blood Count 4.43 M/mm3 (4.20-5.40); Red Cell Distribution Width 12.5 % (11.6-14.4); White Blood Count 7.3 K/mm3 (4.8-10.8)
[2025-02-15 10:08] LABS: Thyroid Stimulating Hormone Reflex 5.53 u/IU/mL (0.36-3.74)
[2025-02-15 10:11] LABS: Alanine Aminotransferase 21 U/L (14-59); Albumin Level 3.5 g/dL (3.4-5.0); Alkaline Phosphatase 239 U/L (46-116); Anion Gap 8 mmol/L (4-12); Aspartate Amino Transferase 19 U/L (15-37); Bilirubin,Total 0.6 mg/dL (0.00-1.00); Blood Urea Nitrogen 28 mg/dL (7-18); Calcium 9.1 mg/dL (8.5-10.1); Carbon Dioxide 27 mmol/L (21-32); Chloride 102 mmol/L (98-108); Cholesterol 211 mg/dL (0-200); Estimated Glomerular Filt Rate 45; Glucose 107 mg/dL (70-99); HDL Direct 50 mg/dL (40-60); LDL Cholesterol Calculated 144 mg/dL (<130); Osmolality Calculated 289 mOsm/kg (285-295); Potassium 4.2 mmol/L (3.5-5.1); Sodium 137 mmol/L (136-145); Total Protein 6.9 g/dL (6.4-8.2); Triglycerides 86 mg/dL (0-150)
[2025-02-15 10:44] LABS: Free T4 Free Thyroxine Reflex 1.05 ng/dL (0.76-1.46)
== END 2025-02-15 08:34 | disposition home or self-care (01) ==
DX: E03.9 Hypothyroidism, unspecified (principal); E78.2 Mixed hyperlipidemia
CPT/HCPCS: 36415; 80053; 80061; 84439; 84443; 85025

== ENCOUNTER 2025-03-08 13:19 | Outpatient (RCR) | payer MEDICARE, SELFPAY ==
--- NOTE | 2025-03-08 15:04 | PTOPEVAL1 ---
Assessment and note entered by Twila Nunez DPT Evaluation Information Assessment Status Evaluation Diagnosis low back pain ICD-10 Condition Codes (PT) Pain in low back M54.50,Radiculopathy, lumbar region M54.16 Onset 03/02/25 Subjective Information Patient reports she has had pain and her back going down the L LE for the past 6-7 months. She reports she got an injection about a week ago and that has seemed to help. She reports pain down the L LE is on the outside and travels all the way to her foot. She reports is worse when laying down for long periods of time. She reports she changes sleeping position at night. She reports as the day goes on, pain decreases. She reports she is having difficulty sleeping due to pain. Reported Pain Level Pain Score 0: Self Report Assessment PT Clinical Summary Ms. Nova is a 89 year old female who presents to PT with low back pain. Objectively she demonstrates decreased B LE strength, decreased B LE flexibility and decreased lumbar ROM impairing her ability to get out of bed in the mornings and roll in bed. She would benefit from skilled PT to address impairments and return to PLOF. Plan of Care Interventions Electrical Stimulation,Gait Training,Hot Pack/Cold Pack,Intermittent Compression Pump,Manual Therapy ,Mechanical Traction,Neuro Re-education,Patient/ Caregiver Education,Therapeutic Activities, Therapeutic Exercise PT Services Indicated Yes Treatment Frequency and 2x weekly for 10 visits Duration These treatments will address the objective and functional deficits as defined above. The patient will be advanced safely and appropriately in order for the patient to progress towards his/her prior level of function. Additional exercises will be introduced and as well as a comprehensive home exercise program upon discharge, if needed, to ensure carryover of functional gains achieved in the clinic. This treatment plan has been reviewed and agreement upon by the patient.
--- NOTE | 2025-04-06 13:57 | OPREHPOC ---
Outpatient Therapy Plan of Care This is a Multidisciplinary Plan of Care that may contain components documented by all disciplines (PT, OT, and ST.) PT Problem 1 PT Problem #1 Knowledge Deficit PT Goal 1 Goal / Goal Update patient to demonstrate independence with HEP Target Visit 5 Progress Met PT Problem 2 PT Problem #2 Pain PT Goal 1 Goal / Goal Update 1. Patient to report highest pain at 2/10 -met Target Visit 10 Progress Met PT Problem 3 PT Problem #3 Impaired Strength PT Goal 1 Goal / Goal Update Patient to demonstrate 4+/5 B LE strength to improve ability to get out of bed -partially met Target Visit 10 Progress Partially Met PT Problem 4 PT Problem #4 Impaired Functional Mobility PT Goal 1 Goal / Goal Update 1. Patient to improve BackIndex by 20% 2. Patient to report ability to roll in bed without increase in back and L LE pain Target Visit 10 Progress Met
--- NOTE | 2025-04-06 13:57 | PTOPDC ---
Assessment and note entered by Angle Mayen, PT Evaluation Information Assessment Status Discharge Diagnosis low back pain ICD-10 Condition Codes (PT) Pain in low back M54.50,Radiculopathy, lumbar region M54.16 Onset 03/02/25 Subjective Information Viviane reports her pain is overall reduced since beginning PT. She notes her pain and radicular symptoms increase to 2/10 at worst which is tolerable for her and she's able to work through it when gardening. She has a follow up in mid April in [place] with her doctor. Reported Pain Level Pain Score 2: Self Report Assessment PT Clinical Summary Mrs. Nova has attended 10 total skilled PT visits addressing low back pain. Since beginning therapy her pain has reduced and she has made good progress in her LE strength. She still demonstrates mild strength deficits in her R hip flexion vs. L but she is independent with her home exercises and feels capable of continuing them on her own. She has met or partially met all therapeutic goals and is appropriate for discharge this date. Plan of Care PT Services Indicated No
== END 2025-04-06 20:00 | disposition home or self-care (01) ==
LOC: CHSPT 13:19
DX: M54.16 Radiculopathy, lumbar region (principal)
CPT/HCPCS: 97014; 97110; 97112; 97140; 97161; G0283